=== PATIENT | female | born 1990 | race American Indian/Alaskan Native ===

== ENCOUNTER 2019-03-22 19:47 | Emergency (ER) | payer SELFPAY ==
--- NOTE | 2019-03-22 19:59 | Emergency Department Report ---
ED ENT HPI - General Chief complaint: Dental/Oral Stated complaint: MOUTH HURTS SWOLLEN Time Seen by Provider: 03/22/19 19:54 Source: patient Mode of arrival: Ambulatory Limitations: No Limitations - History of Present Illness MD complaint: tooth pain -: Gradual Location: tooth # (18) Severity: mild, moderate Consistency: constant Improves with: none Worsens with: eating, movement Context- Dental: history of dental caries Associated Symptoms: gum swelling, toothache - Related Data Previous Rx's Medication Instructions Recorded Last Taken Type Hydrocodone Bit/Acetaminophen 1 - 2 each PO Q4H PRN #20 tablet 04/10/13 Unknown Rx [Lortab 5-500 Tablet] Naproxen [Naprosyn] 500 mg PO BID #30 tablet 04/10/13 Unknown Rx Amoxicillin [Amoxicillin TAB] 875 mg PO BID #20 tablet 03/22/19 Unknown Rx Chlorhexidine Mouthwash [Peridex] 15 ml MM BID #1 bottle 03/22/19 Unknown Rx Lidocaine Viscous 2% 5 ml MM Q3H PRN #120 udc 03/22/19 Unknown Rx traMADol [Ultram] 50 mg PO Q6HR PRN #10 tablet 03/22/19 Unknown Rx Allergies Allergy/AdvReac Type Severity Reaction Status Date / Time aspirin Allergy Angioedema Verified 04/10/13 15:38 diphenhydramine HCl Allergy Seizure Verified 04/10/13 15:38 [From Benadryl] ED Dental HPI - General Chief complaint: Dental/Oral Stated complaint: MOUTH HURTS SWOLLEN Time Seen by Provider: 03/22/19 19:54 Source: patient Mode of arrival: Ambulatory Limitations: No Limitations - Related Data Previous Rx's Medication Instructions Recorded Last Taken Type Hydrocodone Bit/Acetaminophen 1 - 2 each PO Q4H PRN #20 tablet 04/10/13 Unknown Rx [Lortab 5-500 Tablet] Naproxen [Naprosyn] 500 mg PO BID #30 tablet 04/10/13 Unknown Rx Amoxicillin [Amoxicillin TAB] 875 mg PO BID #20 tablet 03/22/19 Unknown Rx Chlorhexidine Mouthwash [Peridex] 15 ml MM BID #1 bottle 03/22/19 Unknown Rx Lidocaine Viscous 2% 5 ml MM Q3H PRN #120 udc 03/22/19 Unknown Rx traMADol [Ultram] 50 mg PO Q6HR PRN #10 tablet 03/22/19 Unknown Rx Allergies Allergy/AdvReac Type Severity Reaction Status Date / Time aspirin Allergy Angioedema Verified 04/10/13 15:38 diphenhydramine HCl Allergy Seizure Verified 04/10/13 15:38 [From Benadryl] ED Review of Systems ROS: Stated complaint: MOUTH HURTS SWOLLEN Other details as noted in HPI Comment: All other systems reviewed and negative ED Past Medical Hx - Past Medical History Previous Medical History?: No - Surgical History Past Surgical History?: No - Social History Smoking Status: Current Every Day Smoker Substance Use Type: Alcohol - Medications Home Medications: Home Medications Medication Instructions Recorded Confirmed Last Taken Type Hydrocodone Bit/Acetaminophen 1 - 2 each PO Q4H PRN #20 tablet 04/10/13 Unknown Rx [Lortab 5-500 Tablet] Naproxen [Naprosyn] 500 mg PO BID #30 tablet 04/10/13 Unknown Rx Amoxicillin [Amoxicillin TAB] 875 mg PO BID #20 tablet 03/22/19 Unknown Rx Chlorhexidine Mouthwash [Peridex] 15 ml MM BID #1 bottle 03/22/19 Unknown Rx Lidocaine Viscous 2% 5 ml MM Q3H PRN #120 udc 03/22/19 Unknown Rx traMADol [Ultram] 50 mg PO Q6HR PRN #10 tablet 03/22/19 Unknown Rx ED Physical Exam - General Limitations: No Limitations General appearance: alert, in no apparent distress - Head Head exam: Present: atraumatic, normocephalic - Eye Eye exam: Present: normal appearance - ENT ENT exam: Present: other (dental caries to lower molar with adjacent gingival swelling. no bleeding. no discharge. airway patient) - Neck Neck exam: Present: normal inspection, tenderness (to tonsilar region) Critical care attestation.: If time is entered above; I have spent that time in minutes in the direct care of this critically ill patient, excluding procedure time. ED Disposition Clinical Impression: Dentalgia Disposition: DC- TO HOME OR SELFCARE Is pt being admited?: No Does the pt Need Aspirin: No Condition: Stable Instructions: Dental Caries (ED), Toothache (ED), Benzocaine (By mouth) Prescriptions: Amoxicillin [Amoxicillin TAB] 875 mg PO BID #20 tablet Lidocaine Viscous 2% 5 ml MM Q3H PRN #120 udc PRN Reason: Pain, Moderate (4-6) Chlorhexidine Mouthwash [Peridex] 15 ml MM BID #1 bottle traMADol [Ultram] 50 mg PO Q6HR PRN #10 tablet PRN Reason: Pain Referrals: [facility] [Outside] - 3-5 Days
[2019-03-22 20:06] VITALS: BP 125/81
[2019-03-22] MEDS ORDERED: HYDROcodone/ACETAMINOPHEN 5-325 MG TAB PO STA (20:07)
== END 2019-03-22 20:20 | disposition home or self-care (01) ==
LOC: ED 19:47
DX: K08.89 Other specified disorders of teeth and supporting structures (principal); F17.200 Nicotine dependence, unspecified, uncomplicated
CPT/HCPCS: 99282

== ENCOUNTER 2019-05-14 19:42 | Emergency (ER) | payer OTHER ==
[2019-05-14 21:35] VITALS: BP 128/79
--- NOTE | 2019-05-14 21:47 | Event Note ---
ED Screening Note Date of service: 05/14/19 Time: 21:45 ED Screening Note: Mid back abscess x 3 days family attempt to smiley at home. Denies fever and chills. This initial assessment/diagnostic orders/clinical plan/treatment(s) is/are subject to change based on patients health status, clinical progression and re- assessment by fellow clinical providers in the ED. Further treatment and workup at subsequent clinical providers discretion. Patient/guardian urged not to elope from the ED as their condition may be serious if not clinically assessed and managed. Initial orders include:
--- NOTE | 2019-05-14 22:39 | Emergency Department Report ---
Chief Complaint: Skin/Abscess/Foreign Body Stated Complaint: BOIL ON BACK Time Seen by Provider: 05/14/19 22:33 - HPI History of Present Illness: 29-year-old -[place] female presents to the emergency room for what was visible on the back of her back for couple of days. Patient states that he has burst. Patient reports that has been sore but has not taken any pain medication. Patient denies any fever or chills. Patient denies any past medical history - Exam Vital Signs: Vital Signs 05/14/19 21:34 Temperature 98.4 F Pulse Rate 69 Respiratory 14 Rate Blood Pressure 128/79 O2 Sat by Pulse 100 Oximetry Physical Exam: Alert and oriented 3 no acute distress Skin nickel-sized nonfluctuant mildly indurated lesion with no surrounding erythematous no drainage scab noted MSE screening note: Focused history and physical exam performed. Due to findings the following was ordered: ED Disposition for MSE Clinical Impression: Boil Disposition: DC-01 TO HOME OR SELFCARE Is pt being admited?: No Does the pt Need Aspirin: No Condition: Stable Additional Instructions: Take Over the counter Ibuprofen or Tylenol for pain management. Follow up with a Primary care provider. Referrals: PRIMARY MD ANGELES [Primary Care Provider] - 3-5 Days
== END 2019-05-15 00:12 | disposition home or self-care (01) ==
LOC: ED 19:42
DX: L02.222 Furuncle of back [any part, except buttock and flank] (principal)